=== PATIENT | female | born 1980 | race Native Hawaiian/Other Pacific Islander ===

== ENCOUNTER 2021-04-14 11:49 | Emergency (ER) | payer BC ==
[~2021-04-14] VITALS: Ht 160 cm; Wt 90.3 kg
[2021-04-14 11:55] VITALS: TEMP 97.5
[2021-04-14 13:21] LABS: PLATELET COUNT 142 K/uL (152-353)
[2021-04-14 13:28] LABS: POTASSIUM 4.4 mmol/L (3.6-5.2)
[2021-04-14 14:54] VITALS: BP 158/92
== END 2021-04-14 14:54 | disposition home or self-care (01) ==
LOC: ED 11:49
PROVIDERS: Emergency Medicine
DX: U07.1 COVID-19 (principal); R93.89 Abnormal findings on diagnostic imaging of other specified body structures; R09.02 Hypoxemia
CPT/HCPCS: 80048; 85027; 99283